=== PATIENT | female | born 1985 | race Caucasian/White ===

== ENCOUNTER 2021-09-20 21:07 | Emergency (ER) | payer BC, OTHER ==
[2021-09-20 21:25] VITALS: BP 147/94; PULSE 98; RESP 18; TEMP 99.2; BMI 29.5
== END 2021-09-20 21:37 | disposition home or self-care (01) ==
LOC: FER 21:07
DX: S50.861A Insect bite (nonvenomous) of right forearm, initial encounter (principal); W57.XXXA Bitten or stung by nonvenomous insect and other nonvenomous arthropods, initial encounter
CPT/HCPCS: 99281-25